=== PATIENT | female | born 1985 | race African-American/Black ===

== ENCOUNTER 2016-05-05 10:39 | Emergency (ER) | payer SELFPAY ==
[~2016-05-05] VITALS: Ht 175.3 cm; Wt 110.0 kg
[~2016-05-05 10:39] MED LIST: BENT20TA PO; NOVO7030P2 SQ; PROC10TA PO; VIST25CA PO; ZANT150T2 PO
[2016-05-05 10:40] VITALS: BP 143/87; PULSE 93; RESP 12; TEMP 98.1; O2SAT 98
--- NOTE | 2016-05-05 12:07 | PD ---
HPI Chief Complaint: Back/ Neck Pain or Injury Time Seen by Provider: 11:30 Travel History International Travel<30 days: No Contact w/Intl Traveler<30days: No Traveled to known affect area: No History of Present Illness HPI 31-year-old female presents to the emergency room for evaluation of left lower back pain without radiation for the past 3 days. Patient states she stands a lot at her job and thinks she may have twisted her back. She reports history of bilateral sciatica and states this pain isn't as severe as that pain but it is persistent. She took 1600 mg ibuprofen without relief in symptoms. Denies fever, weight loss, chills, nausea, vomiting, or IV drug use. There was no specific trauma or injury. Patient is requesting a note to return to work. PFSH Past Medical History Anemia: Yes (IRON DEFICIENT) Asthma: Yes (hx when a child) Autoimmune Disease: No Anxiety: No Depression: No Cardiovascular Problems: Yes (HTN) Diabetes: Yes Diminished Hearing: No Gastrointestinal Disorders: No Genitourinary: No Headaches: Yes Hypertension: Yes Musculoskeletal: No Neurologic: Yes Psychiatric: No Reproductive: No Respiratory: Yes Migraines: Yes Sickle Cell Disease: No ?: Not : 0 Para: 0 Miscarriage: 0 : 0 Past Surgical History Other Surgery: No Social History Alcohol Use: Yes (SOCIALLY) Tobacco Use: Yes (/2 PPD) Substance Use: No Allergies-Medications (Allergen,Severity, Reaction): Coded Allergies: Amoxicillin (Verified Allergy, Severe, Swelling, 05/05/16) Penicillin (Verified Allergy, Severe, SWELLING, 05/05/16) Percocet (Verified Allergy, Severe, ITCHY, 05/05/16) Tramadol (Verified Allergy, Severe, Itching, 05/05/16) Zithromax (Verified Allergy, Intermediate, THROAT SWELLING, 05/05/16) *MDRO Multi-Drug Resistant Organism (Verified Allergy, Unknown, 05/05/16) MRSA 2014 Zofran (Verified Adverse Reaction, Severe, ANXIETY, 05/05/16) Uncoded Allergies: Z-ATUL (Allergy, Severe, Anaphylaxis, 08/22/15) Reported Meds & Prescriptions Reported Meds & Active Scripts Active Prochlorperazine Maleate 10 Mg Tab 10 Mg PO Q6H PRN Zantac (Ranitidine HCl) 150 Mg Tab 150 Mg PO BID PRN Bentyl (Dicyclomine HCl) 20 Mg Tab 20 Mg PO TID PRN Reported Novolin 70-30 Inj (Insulin Human Isoph/Insulin Regular) 1,000 Unit/10 Ml Vial 15 Units SQ HS Novolin 70-30 Inj (Insulin Human Isoph/Insulin Regular) 1,000 Unit/10 Ml Vial 25 Units SQ DAILY Vistaril (Hydroxyzine Pamoate) 25 Mg Cap 10 Mg PO DAILY Review of Systems Except as stated in HPI: all other systems reviewed are Neg Physical Exam Narrative GENERAL: Well-nourished, morbidly obese female in no acute distress. Afebrile. Ambulatory. SKIN: Warm and dry. HEAD: Normocephalic. EYES: No scleral icterus. No injection or drainage. NECK: Supple, trachea midline. No JVD or lymphadenopathy. CARDIOVASCULAR: Regular rate and rhythm without murmurs, gallops, or rubs. RESPIRATORY: Breath sounds equal bilaterally. No accessory muscle use. BACK: No CVA tenderness. No rash. No point tenderness on palpation of the spine. Mild tenderness to palpation of the left paraspinous musculature of the lumbar spine. Data Data Last Documented VS Vital Signs Date Time Temp Pulse Resp B/P Pulse Ox O2 Delivery O2 Flow Rate FiO2 05/05/16 10:40 98.1 93 12 143/87 98 Room Air MDM Medical Decision Making Medical Screen Exam Complete: Yes Emergency Medical Condition: No Medical Record Reviewed: Yes Differential Diagnosis Lumbar strain Narrative Course 31-year-old female with history of sciatica presents to the emergency room for evaluation of low back strain for the past 3 days. States this pain is not as bad as her typical sciatica. Physical exam is unremarkable. Patient is ambulatory. She was instructed to no longer take 1600 mg ibuprofen, that the max dose is 800 mg every 8 hours. She is requesting a work note. No red flag symptoms. No indication for x-ray imaging. There are no urgent or emergent medical conditions at this time. A medical screening exam was performed: At the time of evaluation the presenting medical condition was determined not to be of an emergent nature. The patient was given the option of receiving additional care, such as muscle relaxer and work note, but declined. Patient was given options for additional community resources from which to obtain care. The Patient Has Been advised to seek medical attention for their presenting complaint. The patient has been advised to return to the ER at any time if an emergent condition develops. Diagnosis Primary Impression: Encounter for medical screening examination Disposition: 01 DISCHARGE HOME Condition: Stable Geovanna Schwartz May 05, 2016 12:07
== END 2016-05-05 11:57 | disposition left against medical advice (07) ==
LOC: NEPB 10:39
DX: M54.5 Low back pain (principal); I10 Essential (primary) hypertension; F17.210 Nicotine dependence, cigarettes, uncomplicated
CPT/HCPCS: 99281

== ENCOUNTER 2016-07-12 20:12 | Emergency (ER) | payer SELFPAY ==
[~2016-07-12] VITALS: Ht 175.3 cm; Wt 105.0 kg
[2016-07-12 20:14] VITALS: BP 154/89; PULSE 81; RESP 16; TEMP 97.9; O2SAT 99
[2016-07-12] MEDS ORDERED: CIPR-9 PO (23:13)
--- NOTE | 2016-07-12 23:13 | PD ---
HPI Chief Complaint: Headache Time Seen by Provider: 22:59 Travel History International Travel<30 days: No Contact w/Intl Traveler<30days: No Traveled to known affect area: No History of Present Illness HPI 31-year-old female complains of frontal headache and facial pressure nasal congestion postnasal drip and low abdominal pain. Patient states that headache and facial pressure and congestion started about 3 days ago. Patient denies any fever chills. Patient states that headache is mild aching headache frontal head. Patient denies any neck pain. Patient denies any nausea vomiting. Patient denies any coughing. Patient denies any chest pain or shortness of breath. Patient states that she had intermittent mild cramping pain and lower abdomen pelvic area. Patient states that she has dysuria and frequency for the past several days. Patient denies any back pain. Patient denies any vaginal discharge or bleeding. PFSH Past Medical History Anemia: Yes (IRON DEFICIENT) Asthma: Yes (hx when a child) Autoimmune Disease: No Anxiety: No Depression: No Cardiovascular Problems: Yes (HTN) Diabetes: Yes Patient Takes Glucophage: No Diminished Hearing: No Gastrointestinal Disorders: No Genitourinary: No Headaches: Yes Hypertension: Yes Musculoskeletal: No Neurologic: Yes Psychiatric: No Reproductive: No Respiratory: Yes Migraines: Yes Sickle Cell Disease: No ?: Unknown : 0 Para: 0 Miscarriage: 0 : 0 Past Surgical History Surgical History: No Previous Surgery Other Surgery: No Social History Alcohol Use: Yes (SOCIALLY) Tobacco Use: Yes (1/2 PPD) Substance Use: No Allergies-Medications (Allergen,Severity, Reaction): Coded Allergies: Amoxicillin (Verified Allergy, Severe, Swelling, 07/12/16) Penicillin (Verified Allergy, Severe, SWELLING, 07/12/16) Percocet (Verified Allergy, Severe, ITCHY, 07/12/16) Tramadol (Verified Allergy, Severe, Itching, 07/12/16) Zithromax (Verified Allergy, Intermediate, THROAT SWELLING, 07/12/16) *MDRO Multi-Drug Resistant Organism (Verified Allergy, Unknown, 07/12/16) MRSA 2014 Zofran (Verified Adverse Reaction, Severe, ANXIETY, 07/12/16) Uncoded Allergies: Z-ATUL (Allergy, Severe, Anaphylaxis, 08/22/15) Reported Meds & Prescriptions Reported Meds & Active Scripts Active Cipro (Ciprofloxacin HCl) 500 Mg Tab 500 Mg PO BID Prochlorperazine Maleate 10 Mg Tab 10 Mg PO Q6H PRN Zantac (Ranitidine HCl) 150 Mg Tab 150 Mg PO BID PRN Bentyl (Dicyclomine HCl) 20 Mg Tab 20 Mg PO TID PRN Reported Novolin 70-30 Inj (Insulin Human Isoph/Insulin Regular) 1,000 Unit/10 Ml Vial 15 Units SQ HS Novolin 70-30 Inj (Insulin Human Isoph/Insulin Regular) 1,000 Unit/10 Ml Vial 25 Units SQ DAILY Vistaril (Hydroxyzine Pamoate) 25 Mg Cap 10 Mg PO DAILY Review of Systems General / Constitutional: No: Fever Eyes: No: Visual changes HENT: Positive: Headaches Cardiovascular: No: Chest Pain or Discomfort Respiratory: No: Shortness of Breath Gastrointestinal: Positive: Abdominal Pain Genitourinary: Positive: Frequency, Dysuria Musculoskeletal: No: Pain Skin: No Rash Neurologic: No: Weakness Psychiatric: No: Depression Endocrine: No: Polydipsia Hematologic/Lymphatic: No: Easy Bruising Physical Exam Narrative GENERAL: Well-nourished, well-developed patient. SKIN: Warm and dry. HEAD: Normocephalic. Patient has tenderness on palpation of frontal and maxillary sinus area. Nasal mucosa erythematous and boggy. EYES: No scleral icterus. No injection or drainage. Pupils 3 mm equal reactive. NECK: Supple, trachea midline. No JVD or lymphadenopathy. No meningismus CARDIOVASCULAR: Regular rate and rhythm without murmurs, gallops, or rubs. RESPIRATORY: Breath sounds equal bilaterally. No accessory muscle use. GASTROINTESTINAL: Abdomen soft, non-tender, nondistended. MUSCULOSKELETAL: No cyanosis, or edema. BACK: Nontender without obvious deformity. No CVA tenderness. Neurologic exam normal. Data Data Last Documented VS Vital Signs Date Time Temp Pulse Resp B/P Pulse Ox O2 Delivery O2 Flow Rate FiO2 07/12/16 22:40 18 Room Air 07/12/16 20:14 97.9 81 154/89 99 Orders Urinalysis - C+S If Indicated (07/12/16 23:07) Ed Urine Pregnancytest Poc (07/12/16 23:08) MDM Medical Decision Making Medical Screen Exam Complete: Yes Emergency Medical Condition: Yes Interpretation(s) Urine test negative. Differential Diagnosis Differential diagnosis including tension headache, cluster headache, migraine headache, sinusitis, UTI, pyelonephritis, colitis, cervicitis, PID, . Narrative Course 31-year-old female with congestion, headache, low abdominal pain dysuria and frequency. Diagnosis Primary Impression: Sinusitis Qualified Code: J01.10 - Acute non-recurrent frontal sinusitis Additional Impression: UTI (urinary tract infection) Qualified Code: N30.00 - Acute cystitis without hematuria Patient Instructions: General Instructions Additional Instructions: Cipro as directed. Follow-up with personal physician. Return if worse. Tylenol for headache. 23:34 PM. I was informed by my nurse that patient left AMA without prescription. Med/Other Pt SpecificInfo: Prescription(s) given Scripts Ciprofloxacin (Cipro)500 Mg [id number] Mg PO BID #20 TAB Prov:Sonu Biswas MD 07/12/16 Disposition: 07 AGAINST MEDICAL ADVICE Condition: Stable Sonu Biswas MD Jul 12, 2016 23:13
== END 2016-07-12 23:45 | disposition left against medical advice (07) ==
LOC: NEPA 20:12
DX: J32.9 Chronic sinusitis, unspecified (principal); N39.0 Urinary tract infection, site not specified; R10.9 Unspecified abdominal pain; D64.89 Other specified anemias; I10 Essential (primary) hypertension; E11.9 Type 2 diabetes mellitus without complications; F17.210 Nicotine dependence, cigarettes, uncomplicated
CPT/HCPCS: 99284

== ENCOUNTER 2016-09-06 12:49 | Emergency (ER) | payer SELFPAY ==
[~2016-09-06] VITALS: Ht 175.3 cm; Wt 105.0 kg
[~2016-09-06 12:49] MED LIST changes: +CIPR-9 PO
[2016-09-06 12:51] VITALS: BP 136/72; PULSE 104; RESP 24; TEMP 97.8; O2SAT 98
[2016-09-06] MEDS ORDERED: LISI-519 PO (13:14)
[2016-09-06] MEDS ORDERED: METO-309 PO (13:14)
[2016-09-06] MEDS ORDERED: SODIUM CHLOR 0.9% 1000 ML INJ 1,000 ML IV SCH (13:16)
--- NOTE | 2016-09-06 13:20 | PD ---
HPI Chief Complaint: Abdominal Pain Time Seen by Provider: 13:16 Travel History International Travel<30 days: No Contact w/Intl Traveler<30days: No Traveled to known affect area: No History of Present Illness HPI 31-year-old female with history of hypertension, diabetes, presents to the ER today for sudden onset of lower abdominal and epigastric abdominal pains with nausea and vomiting. She denies any diarrhea, fevers, or any other symptoms. Pain is currently a constant 8 out of 10. She does not know of any exacerbating or alleviating factors. She does not know any sick contacts. Modifying Factors: None Associated Signs & Symptoms: Abdominal pains, nausea and vomiting Risk Factors: None PFSH Past Medical History Anemia: Yes (IRON DEFICIENT) Asthma: Yes (hx when a child) Autoimmune Disease: No Anxiety: No Depression: No Cardiovascular Problems: Yes (HTN) Diabetes: Yes Patient Takes Glucophage: No Diminished Hearing: No Gastrointestinal Disorders: No Genitourinary: No Headaches: Yes Hypertension: Yes Musculoskeletal: No Neurologic: Yes Psychiatric: No Reproductive: No Respiratory: Yes Migraines: Yes Sickle Cell Disease: No ?: Not LMP: 08/29/2016 : 0 Para: 0 Miscarriage: 0 : 0 Past Surgical History Other Surgery: No Social History Alcohol Use: No Tobacco Use: Yes Substance Use: No Allergies-Medications (Allergen,Severity, Reaction): Coded Allergies: Amoxicillin (Verified Allergy, Severe, Swelling, 09/06/16) Penicillin (Verified Allergy, Severe, SWELLING, 09/06/16) Percocet (Verified Allergy, Severe, ITCHY, 09/06/16) Tramadol (Verified Allergy, Severe, Itching, 09/06/16) Zithromax (Verified Allergy, Intermediate, THROAT SWELLING, 09/06/16) *MDRO Multi-Drug Resistant Organism (Verified Allergy, Unknown, 09/06/16) MRSA 2014 Zofran (Verified Adverse Reaction, Severe, ANXIETY, 09/06/16) Uncoded Allergies: Z-ATUL (Allergy, Severe, Anaphylaxis, 08/22/15) Reported Meds & Prescriptions Reported Meds & Active Scripts Active Reported Lopressor (Metoprolol Tartrate) 50 Mg Tab 50 Mg PO DAILY Lisinopril 5 Mg Tab 5 Mg PO DAILY Novolin 70-30 Inj (Insulin Human Isoph/Insulin Regular) 1,000 Unit/10 Ml Vial 25 Units SQ DAILY Review of Systems Except as stated in HPI: all other systems reviewed are Neg Physical Exam Narrative GENERAL: Well-developed obese young -Citizen Of [place] female patient who is currently in moderate distress. Awake and oriented 3. SKIN: Focused skin assessment warm/dry. HEAD: Atraumatic. Normocephalic. EYES: Pupils equal and round. No scleral icterus. No injection or drainage. ENT: No nasal bleeding or discharge. Mucous membranes pink and moist. NECK: Trachea midline. No JVD. CARDIOVASCULAR: Regular rate and rhythm. No murmur appreciated. RESPIRATORY: No accessory muscle use. Clear to auscultation. Breath sounds equal bilaterally. GASTROINTESTINAL: Abdomen soft, mild epigastric tenderness without guarding or rebound, nondistended. Hepatic and splenic margins not palpable. MUSCULOSKELETAL: No obvious deformities. No clubbing. No cyanosis. No edema. NEUROLOGICAL: Awake and alert. No obvious cranial nerve deficits. Motor grossly within normal limits. Normal speech. PSYCHIATRIC: Appropriate mood and affect; insight and judgment normal. Data Data Last Documented VS Vital Signs Date Time Temp Pulse Resp B/P Pulse Ox O2 Delivery O2 Flow Rate FiO2 09/06/16 14:30 98 Room Air 09/06/16 12:51 97.8 104 24 136/72 Orders Complete Blood Count With Diff (09/06/16 13:16) Comprehensive Metabolic Panel (09/06/16 13:16) Lipase (09/06/16 13:16) Urinalysis - C+S If Indicated (09/06/16 13:16) Iv Access Insert/Monitor (09/06/16 13:16) Ecg Monitoring (09/06/16 13:16) Oximetry (09/06/16 13:16) Sodium Chlor 0.9% 1000 Ml Inj (Ns 1000 M (09/06/16 13:16) Sodium Chloride 0.9% Flush (Ns Flush) (09/06/16 13:30) Famotidine Inj (Pepcid Inj) (09/06/16 13:30) Ed Urine Pregnancytest Poc (09/06/16 13:16) Metoclopramide Inj (Reglan Inj) (09/06/16 13:30) Labs Laboratory Tests Test 09/06/16 13:48 White Blood Count 7.4 TH/MM3 Red Blood Count 5.07 MIL/MM3 Hemoglobin 13.9 GM/DL Hematocrit 42.2 % Mean Corpuscular Volume 83.2 FL Mean Corpuscular Hemoglobin 27.5 PG Mean Corpuscular Hemoglobin 33.1 % Concent Red Cell Distribution Width 13.1 % Platelet Count 328 TH/MM3 Mean Platelet Volume 8.3 FL Neutrophils (%) (Auto) 58.8 % Lymphocytes (%) (Auto) 36.5 % Monocytes (%) (Auto) 3.8 % Eosinophils (%) (Auto) 0.5 % Basophils (%) (Auto) 0.4 % Neutrophils # (Auto) 4.3 TH/MM3 Lymphocytes # (Auto) 2.7 TH/MM3 Monocytes # (Auto) 0.3 TH/MM3 Eosinophils # (Auto) 0.0 TH/MM3 Basophils # (Auto) 0.0 TH/MM3 CBC Comment DIFF FINAL Differential Comment Urine Color YELLOW Urine Turbidity HAZY Urine pH 5.5 Urine Specific [place] 1.045 Urine Protein TRACE mg/dL Urine Glucose (UA) 1000 mg/dL Urine Ketones NEG mg/dL Urine Occult Blood NEG Urine Nitrite NEG Urine Bilirubin NEG Urine Urobilinogen 2.0 MG/DL Urine Leukocyte Esterase NEG Urine RBC 1 /hpf Urine WBC 1 /hpf Urine Squamous Epithelial 15 /hpf Cells Urine Hyaline Casts 4 /lpf Urine Mucus FEW /lpf Urine Yeast (Budding) RARE Microscopic Urinalysis Comment CULT NOT INDICATED Sodium Level 133 MEQ/L Potassium Level 4.6 MEQ/L Chloride Level 100 MEQ/L Carbon Dioxide Level 24.9 MEQ/L Anion Gap 8 MEQ/L Blood Urea Nitrogen 13 MG/DL Creatinine 0.98 MG/DL Estimat Glomerular Filtration 81 ML/MIN Rate Random Glucose 288 MG/DL Calcium Level 9.6 MG/DL Total Bilirubin 0.4 MG/DL Aspartate Amino Transf 23 U/L (AST/SGOT) Alanine Aminotransferase 21 U/L (ALT/SGPT) Alkaline Phosphatase 75 U/L Total Protein 8.9 GM/DL Albumin 3.8 GM/DL Lipase 142 U/L MDM Medical Decision Making Medical Screen Exam Complete: Yes Emergency Medical Condition: Yes Medical Record Reviewed: Yes Interpretation(s) Laboratory Tests Test 09/06/16 13:48 Urine Turbidity HAZY (CLEAR) Urine Specific [place] 1.045 (1.002-1.035) Urine Glucose (UA) 1000 mg/dL (NEG) Urine Mucus FEW /lpf (OCC) Urine Yeast (Budding) RARE (NONE) Sodium Level 133 MEQ/L (136-145) Estimat Glomerular Filtration 81 ML/MIN (>89) Rate Random Glucose 288 MG/DL (74-106) Total Protein 8.9 GM/DL (6.4-8.2) Differential Diagnosis Abdominal pains, nausea and vomitinggastritis versus pancreatitis versus gastroenteritis versus dehydration versus metabolic issues Narrative Course Lab work did not indicate significant metabolic issues. Her abdomen is fairly benign and I do not suspect an acute intra-abdominal process.. IV fluids, Reglan, was given in the ER and on reevaluation at 3 PM, the patient is feeling improved. X-ray have been ordered to rule out acute obstruction the patient had declined stating that she is articulate feeling better, does not think that she is obstructed. She has stopped vomiting at this point I think it is fine. She should return for any worsening in symptoms. The plan has been discussed with her and she states understanding. Diagnosis Primary Impression: Gastroenteritis Med/Other Pt SpecificInfo: Prescription(s) given Scripts Metoclopramide (Reglan)10 Mg Tab10 Mg PO QID PRN (NAUSEA OR VOMITING) #20 TAB Ref 0 Prov:Papi Morales MD 09/06/16 Disposition: 01 DISCHARGE HOME Condition: Stable Papi Morales MD September 06, 2016 13:20
[2016-09-06] MEDS ORDERED: METOCLOPRAMIDE HCL 10 MG/2 ML VIAL IV PUSH ONE (13:30)
[2016-09-06] MEDS ORDERED: FAMOTIDINE 20 MG/2 ML VIAL IV PUSH ONE (13:30)
[2016-09-06] MEDS ORDERED: SODIUM CHLORIDE 0.9% FLUSH 10 ML FLUSH IV FLUSH PRN (13:30)
[2016-09-06 13:58] LABS: AUTOMATED NEUTROPHIL # 4.3 TH/MM3 (1.8-7.7); BASOPHIL % 0.4 % (0.0-2.0); EOSINOPHIL % 0.5 % (0.0-4.0); HEMATOCRIT 42.2 % (35.0-46.0); HEMO FLAGS DIFF FINAL; LYMPH % 36.5 % (9.0-44.0); LYMPHOCYTE # 2.7 TH/MM3 (1.0-4.8); MEAN CELL VOLUME 83.2 FL (80.0-100.0); MEAN CORPUSCULAR HEMOGLOBIN 27.5 PG (27.0-34.0); MEAN CORPUSCULAR HGB CONC 33.1 % (32.0-36.0); MONO % 3.8 % (0.0-8.0); NEUT % 58.8 % (16.0-70.0); PLATELET COUNT 328 TH/MM3 (150-450); RED BLOOD COUNT 5.07 MIL/MM3 (4.00-5.30); RED CELL DISTRIBUTION WIDTH 13.1 % (11.6-17.2); WHITE BLOOD COUNT 7.4 TH/MM3 (4.0-11.0)
[2016-09-06 14:19] LABS: ANION GAP 8 MEQ/L (5-15); AST (GOT) 23 U/L (15-37); BICARBONATE 24.9 MEQ/L (21.0-32.0); BLOOD UREA NITROGEN 13 MG/DL (7-18); CHLORIDE 100 MEQ/L (98-107); GLOMERULAR FILTRATION RATE 81 ML/MIN (>89); SODIUM (NA) 133 MEQ/L (136-145)
[2016-09-06 14:20] LABS: ALKALINE PHOSPHATASE 75 U/L (45-117); ALT (GPT) 21 U/L (10-53); TOTAL BILIRUBIN ADULT 0.4 MG/DL (0.2-1.0)
[2016-09-06 14:21] LABS: BLOOD, URINE NEG (NEG); COMMENT (UR) CULT NOT INDICATED; CULTURE IF INDICATED CULT NOT INDICATED; GLUCOSE,URINE 1000 mg/dL (NEG); HYALINE CAST, URINE 4 /lpf (RARE); KETONE, URINE NEG (NEG); MUCUS URINE FEW /lpf (OCC); NITRITE,URINE NEG (NEG); PH, URINE 5.5 (5.0-8.5); SQUAMOUS EPITHELIAL CELL URINE 15 /hpf (0-5); URINE COLOR YELLOW (YELLW/STRAW)
[2016-09-06 14:22] LABS: POTASSIUM 4.6 MEQ/L (3.5-5.1)
[2016-09-06 14:30] VITALS: O2SAT 98
[2016-09-06] MEDS ORDERED: REGL10TA5 PO (15:08)
[2016-09-06 15:09] VITALS: BP 181/88; PULSE 95; RESP 16; O2SAT 98
== END 2016-09-06 15:38 | disposition home or self-care (01) ==
LOC: NEPD 12:49
DX: K52.9 Noninfective gastroenteritis and colitis, unspecified (principal); I10 Essential (primary) hypertension; E78.00 Pure hypercholesterolemia, unspecified; E11.9 Type 2 diabetes mellitus without complications; D50.9 Iron deficiency anemia, unspecified; Z72.0 Tobacco use
CPT/HCPCS: 80053; 81001; 83690; 84703; 85025; 96374; 96375; 99283; J2765; J7030

== ENCOUNTER 2016-09-30 11:34 | Emergency (ER) | payer SELFPAY ==
[~2016-09-30] VITALS: Ht 175.3 cm; Wt 110.0 kg
[~2016-09-30 11:34] MED LIST changes: -BENT20TA PO; -CIPR-9 PO; +LISI-519 PO; +METO-309 PO; -PROC10TA PO; +REGL10TA5 PO; -VIST25CA PO; -ZANT150T2 PO
[2016-09-30 11:35] VITALS: BP 145/92; PULSE 78; RESP 16; TEMP 98.2; O2SAT 100
--- NOTE | 2016-09-30 11:48 | PD ---
Physical Exam Date Seen by Provider: September 30, 2016 Time Seen by Provider: 11:39 Narrative 31 yo female here for evaluation of cold like symptoms. Having bad cough, congestion, stuffy nose and watery eyes for about 5 days. Nothing makes it better. She states having some abdominal pains come and go. She believes she her muscles are sore from coughing. No sick contacts. no recent travel. Cough is productive. No asthma. Vitals sign stable. Patient awaiting bed placement. Data Data Last Documented VS Vital Signs Date Time Temp Pulse Resp B/P Pulse Ox O2 Delivery O2 Flow Rate FiO2 09/30/16 11:35 98.2 78 16 145/92 100 MDM Medical Record Reviewed: Yes Supervised Visit with LLUVIA: No Arias Chapa September 30, 2016 11:48
--- NOTE | 2016-09-30 12:30 | PD ---
HPI Chief Complaint: Cold / Flu Symptoms Time Seen by Provider: 12:15 Travel History International Travel<30 days: No Contact w/Intl Traveler<30days: No Traveled to known affect area: No History of Present Illness HPI Patient is a 31-year-old female presenting to the emergency department for evaluation of nasal congestion, cough, voice changes. She denies any recent fevers. Patient states her symptoms started , she states the cough causes her to have rib pain. She denies any nausea, vomiting, abdominal pain, headache, chest pain. PFSH Past Medical History Anemia: Yes (IRON DEFICIENT) Asthma: Yes (hx when a child) Autoimmune Disease: No Anxiety: No Depression: No Cardiovascular Problems: Yes (HTN) Diabetes: Yes Diminished Hearing: No Gastrointestinal Disorders: No Genitourinary: No Headaches: Yes Hypertension: Yes Musculoskeletal: No Neurologic: Yes Psychiatric: No Reproductive: No Respiratory: Yes Migraines: Yes Sickle Cell Disease: No ?: Not LMP: 08/29/16 : 0 Para: 0 Miscarriage: 0 : 0 Past Surgical History Other Surgery: No Social History Alcohol Use: No Tobacco Use: Yes Substance Use: No Allergies-Medications (Allergen,Severity, Reaction): Coded Allergies: Amoxicillin (Verified Allergy, Severe, Swelling, 09/06/16) Penicillin (Verified Allergy, Severe, SWELLING, 09/06/16) Percocet (Verified Allergy, Severe, ITCHY, 09/06/16) Tramadol (Verified Allergy, Severe, Itching, 09/06/16) Zithromax (Verified Allergy, Intermediate, THROAT SWELLING, 09/06/16) *MDRO Multi-Drug Resistant Organism (Verified Allergy, Unknown, 09/06/16) MRSA 2014 Zofran (Verified Adverse Reaction, Severe, ANXIETY, 09/06/16) Uncoded Allergies: Z-ATUL (Allergy, Severe, Anaphylaxis, 08/22/15) Reported Meds & Prescriptions Reported Meds & Active Scripts Active Reglan (Metoclopramide HCl) 10 Mg Tab 10 Mg PO QID PRN Reported Lopressor (Metoprolol Tartrate) 50 Mg Tab 50 Mg PO DAILY Lisinopril 5 Mg Tab 5 Mg PO DAILY Novolin 70-30 Inj (Insulin Human Isoph/Insulin Regular) 1,000 Unit/10 Ml Vial 25 Units SQ DAILY Review of Systems Except as stated in HPI: all other systems reviewed are Neg General / Constitutional: No: Fever HENT: Positive: Congestion, Other (loss of voice), No: Headaches Cardiovascular: No: Chest Pain or Discomfort Respiratory: Positive: Cough, Pleuritic Pain, No: Shortness of Breath, Wheezing Gastrointestinal: No: Nausea, Vomiting Musculoskeletal: No: Myalgias Neurologic: No: Weakness, Dizziness Physical Exam Narrative GENERAL: Well-nourished, well-developed patient. SKIN: Focused skin assessment warm/dry. HEAD: Normocephalic. ENT: Mucosa pink and moist. No erythema or exudates. No uvular edema. No uvular , palatal, or tonsillar deviation. Airway patent. Nasal turbinates appear normal without nasal blood, purulent drainage or septal hematoma. Cobblestone appearance to posterior pharynx. EYES: No scleral icterus. No injection or drainage. NECK: Supple, trachea midline. No JVD or lymphadenopathy. CARDIOVASCULAR: Regular rate and rhythm without murmurs, gallops, or rubs. RESPIRATORY: Breath sounds equal bilaterally. No accessory muscle use. GASTROINTESTINAL: Abdomen soft, non-tender, nondistended. MUSCULOSKELETAL: No cyanosis, or edema. BACK: Nontender without obvious deformity. No CVA tenderness. Data Data Last Documented VS Vital Signs Date Time Temp Pulse Resp B/P Pulse Ox O2 Delivery O2 Flow Rate FiO2 09/30/16 11:35 98.2 78 16 145/92 100 [facility] Medical Decision Making Medical Screen Exam Complete: Yes Emergency Medical Condition: Yes Interpretation(s) Vital Signs Date Time Temp Pulse Resp B/P Pulse Ox O2 Delivery O2 Flow Rate FiO2 09/30/16 11:35 98.2 78 16 145/92 100 Differential Diagnosis Viral syndrome versus pharyngitis versus postinfectious cough versus bronchitis versus asthma exacerbation versus other Narrative Course Patient's 31-year-old female presenting to emergency for evaluation of cold of flulike symptoms. Symptoms initially started with nasal congestion, progressing to a nonproductive cough and a loss of her voice. Physical exam appears most consistent with a viral syndrome. Patient has had no recent fevers. She does have a history of asthma but does not utilize her inhaler. Patient was encouraged to continue symptomatic management. She will be given a prescription for backup antibiotic at this time. She was encouraged to follow- up with her primary doctor return to emergency department for any new or worsening symptoms. Patient verbalized understanding of instructions. Patient is stable for discharge. Diagnosis Primary Impression: Viral URI with cough Referrals: Primary Care Physician Patient Instructions: General Instructions, Upper Respiratory Infection (ED), Viral Syndrome (DC) Additional Instructions: Follow-up with your primary doctor or at the new [place] [facility] Continue with symptomatic management Return to emergency department for any new or worsening symptoms If you start antibiotic, complete full course of therapy as prescribed Med/Other Pt SpecificInfo: Prescription(s) given Scripts Ibuprofen 800 Mg [id number] Mg PO Q6HR PRN (PAIN) #40 TAB Ref 0 Prov:Tahira Castillo 09/30/16 Benzonatate (Tessalon Perles)100 Mg [id number] Mg PO TID PRN (COUGH) #12 CAP Ref 0 Prov:Tahira Castillo 09/30/16 Doxycycline Hyclate 100 Mg [id number] Mg PO BID #20 CAP Ref 0 Prov:Tahira Castillo 09/30/16 Disposition: 01 DISCHARGE HOME Condition: Stable Tahira Castillo September 30, 2016 12:29
[2016-09-30] MEDS ORDERED: DOXY100C PO (12:37)
[2016-09-30] MEDS ORDERED: BENZ100 PO (12:37)
[2016-09-30] MEDS ORDERED: IBUP800T23 PO (12:37)
== END 2016-09-30 12:49 | disposition home or self-care (01) ==
LOC: NEPK 11:34
DX: J06.9 Acute upper respiratory infection, unspecified (principal); I10 Essential (primary) hypertension; E11.9 Type 2 diabetes mellitus without complications; Z79.4 Long term (current) use of insulin; Z72.0 Tobacco use
CPT/HCPCS: 99284

== ENCOUNTER 2016-11-25 03:42 | Emergency (ER) | payer SELFPAY ==
[~2016-11-25] VITALS: Ht 172.7 cm; Wt 110.0 kg
[~2016-11-25 03:42] MED LIST changes: +BENZ100 PO; +DOXY100C PO; +IBUP800T23 PO
[2016-11-25 03:43] VITALS: BP 170/99; PULSE 74; RESP 18; TEMP 97.7; O2SAT 100
--- NOTE | 2016-11-25 04:09 | PD ---
HPI Chief Complaint: Complaint Time Seen by Provider: 04:07 Travel History International Travel<30 days: No Contact w/Intl Traveler<30days: No Traveled to known affect area: No History of Present Illness HPI Patient comes in complaining of dysuria ongoing for 2 weeks. Patient states she tried taking leftover Cipro from previous UTI with no improvement of symptoms. Patient's last took this yesterday. Patient states pain is getting progressively worse. Patient having suprapubic abdominal pain that radiates to the left. Patient denies any back pain, fevers, change in bowel. Patient states she's been having vaginal discharge and she thinks might be yeast. Patient tried using [id number] Monistat with no improvement of her symptoms. Patient reports painful intercourse. Denies any nausea, vomiting, chest pain, shortness of breath, or fevers. Patient reports she is diabetic, but does not check her blood sugars is uncertain what they run. PFSH Past Medical History Anemia: Yes (IRON DEFICIENT) Asthma: Yes (hx when a child) Autoimmune Disease: No Anxiety: No Depression: No Cardiovascular Problems: Yes (HTN) Diabetes: Yes Patient Takes Glucophage: No Diminished Hearing: No Gastrointestinal Disorders: No Genitourinary: No Headaches: Yes Hypertension: Yes Musculoskeletal: No Neurologic: Yes Psychiatric: No Reproductive: No Respiratory: Yes Migraines: Yes Sickle Cell Disease: No Tetanus Vaccination: < 5 Years ?: Not LMP: LAST WEEK : 0 Para: 0 Miscarriage: 0 : 0 Past Surgical History Surgical History: No Previous Surgery Other Surgery: No Social History Alcohol Use: No Tobacco Use: Yes Substance Use: No Allergies-Medications (Allergen,Severity, Reaction): Coded Allergies: Amoxicillin (Verified Allergy, Severe, Swelling, 11/25/16) Penicillin (Verified Allergy, Severe, SWELLING, 11/25/16) Percocet (Verified Allergy, Severe, ITCHY, 11/25/16) Tramadol (Verified Allergy, Severe, Itching, 11/25/16) Zithromax (Verified Allergy, Intermediate, THROAT SWELLING, 11/25/16) *MDRO Multi-Drug Resistant Organism (Verified Allergy, Unknown, 11/25/16) MRSA 2014 Zofran (Verified Adverse Reaction, Severe, ANXIETY, 11/25/16) Uncoded Allergies: Z-ATUL (Allergy, Severe, Anaphylaxis, 08/22/15) Reported Meds & Prescriptions Reported Meds & Active Scripts Active Bactrim DS (Sulfamethoxazole-Trimethoprim) 800-160 Mg Tab 1 Tab PO BID Reglan (Metoclopramide HCl) 10 Mg Tab 10 Mg PO QID PRN Reported Lisinopril 5 Mg Tab 5 Mg PO DAILY Novolin 70-30 Inj (Insulin Human Isoph/Insulin Regular) 1,000 Unit/10 Ml Vial 25 Units SQ DAILY Review of Systems Except as stated in HPI: all other systems reviewed are Neg Physical Exam Narrative GENERAL: Well-developed, overly nourished, in no acute distress, and non-ill appearing. SKIN: Focused skin assessment warm and dry. HEAD: Atraumatic. Normocephalic. EYES: Pupils equal and round. EOMI. No scleral icterus. No injection or drainage. ENT: No nasal bleeding or discharge. Mucous membranes pink and moist. NECK: Trachea midline. Supple. No nuclear rigidity. CARDIOVASCULAR: Regular rate and rhythm. No murmur appreciated. RESPIRATORY: No accessory muscle use. No respiratory distress. Clear to auscultation. Breath sounds equal bilaterally. GASTROINTESTINAL: Abdomen soft, non-tender, nondistended, and no guarding. Hepatic and splenic margins not palpable. Normal bowel sounds 4. No pulsatile mass. No CVA tenderness. GENITOURINARY: Normal external genitalia without lesions or erythema. Vaginal vault without blood on the milky discharge. Cervical os was closed without drainage. No cervical motion tenderness. Uterus nontender and nonenlarged. Bilateral adnexa nontender without masses. Exam was performed in the presence of senior staff specialized employment Cindy at all times. MUSCULOSKELETAL: No obvious deformities. No clubbing. No cyanosis. No edema. Full range of motion. NEUROLOGICAL: Awake and alert. No obvious cranial nerve deficits. Motor grossly within normal limits. Normal speech. PSYCHIATRIC: Appropriate mood and affect; insight and judgment normal. Data Data Last Documented VS Vital Signs Date Time Temp Pulse Resp B/P Pulse Ox O2 Delivery O2 Flow Rate FiO2 11/25/16 04:47 18 98 Room Air 11/25/16 03:43 97.7 74 170/99 Orders Complete Blood Count With Diff (11/25/16 04:05) Comprehensive Metabolic Panel (11/25/16 04:05) Gc And Chlamydia Pcr (11/25/16 04:05) Wet Prep Profile (11/25/16 04:05) Urinalysis - C+S If Indicated (11/25/16 04:05) Iv Access Insert/Monitor (11/25/16 04:05) Ed Urine Pregnancytest Poc (11/25/16 04:05) Ecg Monitoring (11/25/16 04:13) Oximetry (11/25/16 04:13) Sodium Chloride 0.9% Flush (Ns Flush) (11/25/16 04:15) Insulin Human Regular Inj (Novolin R Inj (11/25/16 04:15) Urine Culture (11/25/16 04:15) Ceftriaxone Inj (Rocephin Inj) (11/25/16 05:00) Labs Laboratory Tests Test 11/25/16 11/25/16 04:15 04:30 White Blood Count 5.8 TH/MM3 Red Blood Count 4.35 MIL/MM3 Hemoglobin 12.3 GM/DL Hematocrit 37.2 % Mean Corpuscular Volume 85.5 FL Mean Corpuscular Hemoglobin 28.3 PG Mean Corpuscular Hemoglobin 33.1 % Concent Red Cell Distribution Width 14.1 % Platelet Count 280 TH/MM3 Mean Platelet Volume 8.4 FL Neutrophils (%) (Auto) 36.3 % Lymphocytes (%) (Auto) 57.2 % Monocytes (%) (Auto) 4.1 % Eosinophils (%) (Auto) 1.6 % Basophils (%) (Auto) 0.8 % Neutrophils # (Auto) 2.1 TH/MM3 Lymphocytes # (Auto) 3.3 TH/MM3 Monocytes # (Auto) 0.2 TH/MM3 Eosinophils # (Auto) 0.1 TH/MM3 Basophils # (Auto) 0.0 TH/MM3 CBC Comment DIFF FINAL Differential Comment Urine Color YELLOW Urine Turbidity CLOUDY Urine pH 6.5 Urine Specific Kirksey 1.030 Urine Protein 30 mg/dL Urine Glucose (UA) 1000 mg/dL Urine Ketones NEG mg/dL Urine Occult Blood MOD Urine Nitrite NEG Urine Bilirubin NEG Urine Urobilinogen LESS THAN 2.0 MG/DL Urine Leukocyte Esterase LARGE Urine RBC 97 /hpf Urine WBC /hpf Urine WBC Clumps FEW Urine Squamous Epithelial 1 /hpf Cells Urine Transitional Epithelial 1 /hpf Cells Urine Mucus FEW /lpf Microscopic Urinalysis Comment CULTURE INDICATED Sodium Level 135 MEQ/L Potassium Level 4.0 MEQ/L Chloride Level 100 MEQ/L Carbon Dioxide Level 25.4 MEQ/L Anion Gap 10 MEQ/L Blood Urea Nitrogen 12 MG/DL Creatinine 1.03 MG/DL Estimat Glomerular Filtration 77 ML/MIN Rate Random Glucose 410 MG/DL Calcium Level 9.0 MG/DL Total Bilirubin 0.1 MG/DL Aspartate Amino Transf 14 U/L (AST/SGOT) Alanine Aminotransferase 18 U/L (ALT/SGPT) Alkaline Phosphatase 64 U/L Total Protein 7.8 GM/DL Albumin 3.2 GM/DL Clue Cells (Wet Prep) NONE SEEN Vaginal Trichomonas (Wet Prep) NONE SEEN Vaginal Yeast (Wet Prep) NONE SEEN MDM Medical Decision Making Medical Screen Exam Complete: Yes Emergency Medical Condition: Yes Differential Diagnosis UTI, PID, STD, pyelonephritis, other Narrative Course The patient presentation with history and evaluation are consistent with UTI. There is no evidence of pyelonephritis. The patient is tolerating fluids, no fever and no back pain. There is no clinical evidence to suggest atypical cervicitis, PID, appendicitis. The patient was discharged on antibiotics and given warnings to return if condition worsens in any way, fever, vomiting and unable to tolerate medications or fluids, back pain or as needed. The patient was instructed to follow up with their physician. The patient agrees with plan of care. Blood sugar at discharge was down to 251 after receiving 6 units of insulin IV. Patient's record was reviewed patient was sure seems to run around 300 on a regular basis. Patient in no obvious distress upon re-evaluation. All pertinent laboratory result(s) discussed with patient with the exception of gonorrhea and Chlamydia that are currently pending. Patient was asked if they wanted to speak to my attending, which the patient did not wish to do at this time. Any questions/ concerns in reference to patient diagnosis/condition discussed and clarified prior to patient's discharge. Reinforced sheer importance of close follow up with patient's primary physician or primary care clinic. Instructed patient to return to ED immediately, if symptoms return/worsen. Pt showed understanding of above instructions. Further instructions and recommendations were detailed in discharge paperwork. Pt ambulated without difficulty out of ED at discharge. Diagnosis Primary Impression: UTI (urinary tract infection) Qualified Code: N39.0 - Urinary tract infection with hematuria, site unspecified Additional Impression: Uncontrolled diabetes mellitus Qualified Code: E10.65 - Uncontrolled type 1 diabetes mellitus without complication Referrals: [facility] Education-Out [facility] Patient Instructions: General Instructions, Managing Diabetes During Sick Days (GEN), Urinary Tract Infection in Women (ED) Additional Instructions: Follow-up with your primary care physician in 3-5 days for reevaluation and to get your blood sugars better controlled. Take all medication as prescribed. Return to the emergency department if symptoms get worse. Med/Other Pt SpecificInfo: Prescription(s) given Scripts Sulfamethoxazole-Trimethoprim (Bactrim DS)800-160 Mg Tab1 Tab PO BID #20 TAB Ref 0 Prov:Abigail Fletcher MD 11/25/16 Disposition: 01 DISCHARGE HOME Condition: Stable Robin Crenshaw Nov 25, 2016 04:09
[2016-11-25] MEDS ORDERED: SODIUM CHLORIDE 0.9% FLUSH 10 ML FLUSH IV FLUSH PRN (04:15)
[2016-11-25] MEDS ORDERED: INSULIN HUMAN REGULAR 1,000 UNITS/10 ML VIAL IV PUSH ONE (04:15)
[2016-11-25 04:39] LABS: AUTOMATED NEUTROPHIL # 2.1 TH/MM3 (1.8-7.7); BASOPHIL % 0.8 % (0.0-2.0); EOSINOPHIL # 0.1 TH/MM3 (0-0.4); EOSINOPHIL % 1.6 % (0.0-4.0); HEMATOCRIT 37.2 % (35.0-46.0); HEMO FLAGS DIFF FINAL; LYMPH % 57.2 % (9.0-44.0); LYMPHOCYTE # 3.3 TH/MM3 (1.0-4.8); MEAN CELL VOLUME 85.5 FL (80.0-100.0); MEAN CORPUSCULAR HEMOGLOBIN 28.3 PG (27.0-34.0); MEAN CORPUSCULAR HGB CONC 33.1 % (32.0-36.0); MONO % 4.1 % (0.0-8.0); NEUT % 36.3 % (16.0-70.0); PLATELET COUNT 280 TH/MM3 (150-450); RED BLOOD COUNT 4.35 MIL/MM3 (4.00-5.30); RED CELL DISTRIBUTION WIDTH 14.1 % (11.6-17.2); WHITE BLOOD COUNT 5.8 TH/MM3 (4.0-11.0)
[2016-11-25 04:47] VITALS: RESP 18; O2SAT 98
[2016-11-25 04:50] LABS: BLOOD, URINE MOD (NEG); COMMENT (UR) CULTURE INDICATED; CULTURE IF INDICATED CULTURE INDICATED; GLUCOSE,URINE 1000 mg/dL (NEG); KETONE, URINE NEG (NEG); MUCUS URINE FEW /lpf (OCC); NITRITE,URINE NEG (NEG); PH, URINE 6.5 (5.0-8.5); SQUAMOUS EPITHELIAL CELL URINE 1 /hpf (0-5); TRANSITIONAL EPI CELLS, URINE 1 /hpf; URINE COLOR YELLOW (YELLW/STRAW)
[2016-11-25 04:57] LABS: ALKALINE PHOSPHATASE 64 U/L (45-117); ALT (GPT) 18 U/L (10-53); ANION GAP 10 MEQ/L (5-15); AST (GOT) 14 U/L (15-37); BICARBONATE 25.4 MEQ/L (21.0-32.0); BLOOD UREA NITROGEN 12 MG/DL (7-18); CHLORIDE 100 MEQ/L (98-107); GLOMERULAR FILTRATION RATE 77 ML/MIN (>89); SODIUM (NA) 135 MEQ/L (136-145); TOTAL BILIRUBIN ADULT 0.1 MG/DL (0.2-1.0)
[2016-11-25] MEDS ORDERED: cefTRIAXone INJ 1,000 MG in SODIUM CHLORIDE 0.9% INJ 25 ML IV ONE (05:00)
[2016-11-25] MEDS ORDERED: BACT800T5 PO (05:21)
[2016-11-25 06:21] LABS: CHLAMYDIA PCR NOT DETECTED (NOT DETECT); NEISSERIA PCR NOT DETECTED (NOT DETECT)
== END 2016-11-25 06:00 | disposition home or self-care (01) ==
LOC: NEPD 03:42
DX: N39.0 Urinary tract infection, site not specified (principal); B96.20 Unspecified Escherichia coli [E. coli] as the cause of diseases classified elsewhere; E11.65 Type 2 diabetes mellitus with hyperglycemia; N89.8 Other specified noninflammatory disorders of vagina; D50.9 Iron deficiency anemia, unspecified; J45.909 Unspecified asthma, uncomplicated; I10 Essential (primary) hypertension; Z72.0 Tobacco use; Z79.4 Long term (current) use of insulin
CPT/HCPCS: 80053; 81001; 84703; 85025; 87077; 87086; 87186; 87210; 87491; 87591; 96374; 96375; 99284; J0696; J1815

== ENCOUNTER 2016-12-16 20:47 | Emergency (ER) | payer SELFPAY ==
[~2016-12-16 20:47] MED LIST changes: +BACT800T5 PO; -BENZ100 PO; -DOXY100C PO; -IBUP800T23 PO; -METO-309 PO
[2016-12-16 20:50] VITALS: BP 139/92; PULSE 82; RESP 16; TEMP 98.1; O2SAT 100
[2016-12-17] MEDS ORDERED: IBUP800T23 PO (12:34)
[2016-12-17] MEDS ORDERED: ROBA500T PO (12:34)
== END 2016-12-16 21:10 | disposition left against medical advice (07) ==
LOC: NED 20:47
DX: M54.9 Dorsalgia, unspecified (principal); Z53.21 Procedure and treatment not carried out due to patient leaving prior to being seen by health care provider
CPT/HCPCS: 99281

== ENCOUNTER 2016-12-17 11:48 | Emergency (ER) | payer SELFPAY ==
[~2016-12-17] VITALS: Ht 175.3 cm; Wt 109.0 kg
[2016-12-17 11:49] VITALS: BP 141/95; PULSE 88; RESP 18; TEMP 98.1; O2SAT 100
--- NOTE | 2016-12-17 12:33 | PD ---
HPI Chief Complaint: Back/ Neck Pain or Injury Time Seen by Provider: 12:33 Travel History International Travel<30 days: No Contact w/Intl Traveler<30days: No Traveled to known affect area: No History of Present Illness HPI 31-year-old female presents to emergency Department with complaint of left lower back pain that radiates down her left leg. The lower back pain started on Thursday after she fell. And then the radiation of pain down her left leg started yesterday. Denies encopresis, incontinence, saddle anesthesias. Denies fever, vomiting. Denies abdominal pain. Denies paresthesias, loss of sensation, decreased range of motion, decreased strength to bilateral lower extremities. Patient is ambulatory. Denies IV drug use or cancer. Has taken 800 mg ibuprofen for symptom management. Symptoms are mild in severity. Has no other medical complaints. Multiple allergies verified on the chart. No other modifying factors or associated signs and symptoms. PFSH Past Medical History Anemia: Yes (IRON DEFICIENT) Asthma: Yes (hx when a child) Autoimmune Disease: No Anxiety: No Depression: No Cardiovascular Problems: Yes (HTN) Diabetes: Yes Diminished Hearing: No Gastrointestinal Disorders: No Genitourinary: No Headaches: Yes Hypertension: Yes Musculoskeletal: No Neurologic: Yes Psychiatric: No Reproductive: No Respiratory: Yes Migraines: Yes Sickle Cell Disease: No : 0 Para: 0 Miscarriage: 0 : 0 Past Surgical History Other Surgery: No Social History Alcohol Use: No Tobacco Use: Yes Substance Use: No Allergies-Medications (Allergen,Severity, Reaction): Coded Allergies: acetaminophen (Unverified Allergy, Severe, ITCHY, 12/17/16) amoxicillin (Unverified Allergy, Severe, Swelling, 12/17/16) oxycodone (Unverified Allergy, Severe, ITCHY, 12/17/16) penicillin G (Unverified Allergy, Severe, SWELLING, 12/17/16) tramadol (Unverified Allergy, Severe, Itching, 12/17/16) azithromycin (Unverified Allergy, Intermediate, THROAT SWELLING, 12/17/16) *MDRO Multi-Drug Resistant Organism (Verified Allergy, Unknown, 11/25/16) MRSA 2014 ondansetron (Unverified Adverse Reaction, Severe, ANXIETY, 12/17/16) Uncoded Allergies: Z-ATUL (Allergy, Severe, Anaphylaxis, 08/22/15) Reported Meds & Prescriptions Reported Meds & Active Scripts Active Ibuprofen 800 Mg Tab 800 Mg PO Q6HR PRN Robaxin (Methocarbamol) 500 Mg Tab 500 Mg PO QID PRN Reported Lisinopril 5 Mg Tab 5 Mg PO DAILY Novolin 70-30 Inj (Insulin Human Isoph/Insulin Regular) 1,000 Unit/10 Ml Vial 25 Units SQ DAILY Review of Systems Except as stated in HPI: all other systems reviewed are Neg Physical Exam Narrative GENERAL: Well-nourished, well-developed female patient, in no acute distress; afebrile, nontoxic-appearing SKIN: Warm and dry. HEAD: Atraumatic. Normocephalic. EYES: Pupils equal and round. No scleral icterus. No injection or drainage. ENT: Mucosa pink and moist. Airway patent. NECK: Trachea midline. CARDIOVASCULAR: Regular rate. RESPIRATORY: No accessory muscle use. GASTROINTESTINAL: Obese. MUSCULOSKELETAL: Bilateral lower extremities supple and non-tense with 2+ pedal pulses and sensory intact; with full range of motion and 5/5 strength. 2 + DTRs bilaterally. Active dorsiflexion and extension of bilateral feet. Ambulatory in room with normal gait. Sitting up in bed at 90. No obvious deformities. No clubbing. No cyanosis. No edema. BACK: No midline point tenderness on palpation of the lumbar spine. Tenderness on palpation of left lumbar iliosacral area. No obvious deformities. NEUROLOGICAL: Awake and alert. Oriented 3. No obvious cranial nerve deficits. Motor grossly within normal limits. Normal speech. Moves all extremities. 5/5 strength to all extremities. Sensory intact. PSYCHIATRIC: Appropriate mood and affect; insight and judgment normal. Data Data Last Documented VS Vital Signs Date Time Temp Pulse Resp B/P Pulse Ox O2 Delivery O2 Flow Rate FiO2 12/17/16 11:49 98.1 88 18 141/95 100 Room Air Orders Ketorolac Inj (Toradol Inj) (12/17/16 12:45) Orphenadrine Inj (Norflex Inj) (12/17/16 12:45) MDM Medical Decision Making Medical Screen Exam Complete: Yes Emergency Medical Condition: Yes Medical Record Reviewed: Yes Differential Diagnosis Low back strain, low back pain, sciatica Narrative Course 31-year-old female physical examination consistent with left-sided low back pain with sciatica. Denies encopresis, incontinence, saddle anesthesias. No midline tenderness on palpation of the lumbar spine. Patient is a motor in the room with normal gait. Denies IV drug use or cancer. Patient is afebrile and nontoxic appearing. Denies fever, vomiting. Toradol and Norflex administered in the ER. Robaxin and ibuprofen prescribed for home. Instructed patient to follow up with primary care provider. Patient verbalizes understanding and agreement with treatment plan. Patient is medically cleared and stable for discharge. Discussed reasons to return to the emergency department. Patient agrees with treatment plan. The patients vital signs are stable and the patient is stable for outpatient follow-up and treatment. Patient discharged home, stable and in no acute distress. Diagnosis Primary Impression: Left-sided low back pain with sciatica Qualified Code: M54.42 - Left-sided low back pain with left-sided sciatica, unspecified chronicity Referrals: Primary Care Physician Patient Instructions: Acute Low Back Pain (ED), General Instructions, Low Back Strain (ED), Sciatica (ED) Departure Forms: Tests/Procedures, Work Release Enter return to work date: Dec 19, 2016 Additional Instructions: Tylenol or ibuprofen as directed and as needed for pain Robaxin as prescribed and as needed for muscle spasms Heating pad and/or ice to affected area to reduce pain Avoid aggravating activities; increase activity as tolerated Follow-up with primary care provider Return to emergency department immediately with worsening of symptoms Med/Other Pt SpecificInfo: Prescription(s) given Scripts Ibuprofen 800 Mg Rth095 Mg PO Q6HR PRN (PAIN) #30 TAB Ref 0 Prov:Hortencia Cruz 12/17/16 Methocarbamol (Robaxin)500 Mg [id number] Mg PO QID PRN (MUSCLE SPASM) #30 TAB Ref 0 Prov:Hortencia Cruz 12/17/16 Disposition: 01 DISCHARGE HOME Condition: Stable Hortencia Cruz Dec 17, 2016 12:33
[2016-12-17] MEDS ORDERED: IBUP800T23 PO (12:34)
[2016-12-17] MEDS ORDERED: ROBA500T PO (12:34)
[2016-12-17] MEDS ORDERED: ORPHENADRINE INJ 60 MG/2 ML AMP IM ONE (12:45)
[2016-12-17] MEDS ORDERED: KETOROLAC TROMETHAMINE 60 MG/2 ML (IM) VIAL IM ONE (12:45)
== END 2016-12-17 12:58 | disposition home or self-care (01) ==
LOC: NEPK 11:48
DX: M54.42 Lumbago with sciatica, left side (principal); E11.9 Type 2 diabetes mellitus without complications; I10 Essential (primary) hypertension; Z72.0 Tobacco use; Z79.4 Long term (current) use of insulin; Z86.2 Personal history of diseases of the blood and blood-forming organs and certain disorders involving the immune mechanism; Z87.09 Personal history of other diseases of the respiratory system; Z86.79 Personal history of other diseases of the circulatory system; Z86.69 Personal history of other diseases of the nervous system and sense organs; W19.XXXA Unspecified fall, initial encounter
CPT/HCPCS: 96372; 99284; J1885; J2360

== ENCOUNTER 2017-05-11 00:49 | Emergency (ER) | payer SELFPAY ==
[~2017-05-11] VITALS: Ht 177.8 cm; Wt 95.0 kg
[~2017-05-11 00:49] MED LIST changes: -BACT800T5 PO; +IBUP1TAB7 PO; -REGL10TA5 PO; +ROBA500T PO
[2017-05-11 00:51] VITALS: BP 168/99; PULSE 99; RESP 16; TEMP 97.8; O2SAT 99
--- NOTE | 2017-05-11 01:44 | PD ---
HPI Chief Complaint: Flank/Kidney Pain Time Seen by Provider: 01:25 Travel History International Travel<30 days: No Contact w/Intl Traveler<30days: No Traveled to known affect area: No History of Present Illness HPI The patient is a 32 year old female who presents to the [facility] emergency department with a history of suprapubic abdominal pain that she reports began 4 weeks ago and has been constant. The patient reports the pain as an aching sensation. Approximate 2 weeks ago she began to have right-sided flank pain. She reports that throughout the months she has had a strong odor to her urine, however she denies dysuria or urinary urgency. She reports that she has chronic urinary frequency related to having diabetes. She reports that she fell unwell earlier today with lightheaded sensation, nausea vomiting 4. She took her blood sugar at 4 PM and it was 301. She reports that she took an extra 15 units of 70/30 insulin at that time. She reports that normally she is on 15 units in the morning, 20 units in the evening. She denies having a primary care physician. She denies having any vaginal discharge or unusual vaginal bleeding. She denies having any recent fevers, cough, congestion, neck pain, chest pain, shortness of breath, diarrhea, or neurologic symptoms. Her last bowel movement was earlier today. She denies having any blood in her stool or black or tarry stools. [facility] Past Medical History Narrative Medical The patient's past medical history is significant for diabetes, diagnosed approximately 11 years ago, history of hypertension, anemia, history of asthma in childhood, history of headaches. Anemia: Yes (IRON DEFICIENT) Asthma: Yes (hx when a child) Autoimmune Disease: No Blood Disorders: Yes (anemia) Anxiety: No Depression: No Cardiovascular Problems: Yes (HTN) Diabetes: Yes Patient Takes Glucophage: No Diminished Hearing: No Gastrointestinal Disorders: No Genitourinary: No Headaches: Yes Hypertension: Yes Musculoskeletal: No Neurologic: Yes Psychiatric: No Reproductive: No Respiratory: Yes Immunizations Current: Yes Migraines: Yes Sickle Cell Disease: No Tetanus Vaccination: < 5 Years Influenza Vaccination: No ?: Not LMP: 04/28/17 : 0 Para: 0 Miscarriage: 0 : 0 Past Surgical History Narrative Surgical The patient's past surgical history is significant for none. Other Surgery: No Social History Alcohol Use: No Tobacco Use: Yes (one half pack per day) Substance Use: No Allergies-Medications (Allergen,Severity, Reaction): Coded Allergies: acetaminophen (Unverified Allergy, Severe, ITCHY, 05/11/17) amoxicillin (Unverified Allergy, Severe, Swelling, 05/11/17) oxycodone (Unverified Allergy, Severe, ITCHY, 05/11/17) penicillin G (Unverified Allergy, Severe, SWELLING, 05/11/17) tramadol (Unverified Allergy, Severe, Itching, 05/11/17) azithromycin (Unverified Allergy, Intermediate, THROAT SWELLING, 05/11/17) *MDRO Multi-Drug Resistant Organism (Verified Allergy, Unknown, 05/11/17) MRSA 2013 ondansetron (Unverified Adverse Reaction, Severe, ANXIETY, 05/11/17) Uncoded Allergies: Z-ATUL (Allergy, Severe, Anaphylaxis, 08/22/15) Reported Meds & Prescriptions Reported Meds & Active Scripts Active Cipro (Ciprofloxacin HCl) 500 Mg Tab 500 Mg PO BID 7 Days Ibuprofen 800 Mg Tab 800 Mg PO Q6HR PRN Robaxin (Methocarbamol) 500 Mg Tab 500 Mg PO QID PRN Reported Lisinopril 5 Mg Tab 5 Mg PO DAILY Novolin 70-30 Inj (Insulin Human Isoph/Insulin Regular) 1,000 Unit/10 Ml Vial 25 Units SQ DAILY Review of Systems Except as stated in HPI: all other systems reviewed are Neg General / Constitutional: No: Fever Eyes: No: Visual changes HENT: No: Headaches Cardiovascular: No: Chest Pain or Discomfort Respiratory: No: Shortness of Breath Gastrointestinal: Positive: Nausea, Vomiting, Abdominal Pain, No: Diarrhea, Constipation, Changes in Bowel Habits, Indigestion, Loss of Appetite Genitourinary: Positive: Frequency, Other (strong odor to her urine), No: Urgency, Dysuria Musculoskeletal: No: Pain Skin: No Rash Neurologic: Positive: Weakness (generalized weakness), No: Focal Abnormalities , Change in Mentation, Slurred Speech, Sensory Disturbance Psychiatric: No: Depression Endocrine: No: Polydipsia Hematologic/Lymphatic: No: Easy Bruising Physical Exam Narrative General: The patient is a well-developed well-nourished female in no acute distress. Head and Neck exam: Head is normocephalic atraumatic. Eyes: EOMI, pupils are equal round and reactive to light. Nose: Midline septum with pink mucous membranes Mouth: Dentition unremarkable. Moist mucus membranes. Posterior oropharynx is not erythematous. No tonsillar hypertrophy. Uvula midline. Airway patent. Neck: No palpable lymphadenopathy. No nuchal rigidity. No thyromegaly. Cardiovascular: Regular rate and rhythm without murmurs, gallops, or rubs. No pulse deficit to the extremities. Lungs: Clear to auscultation bilaterally. No wheezes, rhonchi, or rales. Abdomen: Soft, with tenderness on palpation of the suprapubic area, no other tenderness on palpation of the other quadrants of the abdomen. No tenderness on palpation of McBurney's point. No guarding, rebound, or rigidity. Normal bowel sounds are audible. Extremities: No clubbing, cyanosis, or edema. 2+ pulses in all 4 extremities. Back: No spinous process tenderness to palpation. No costovertebral angle tenderness to palpation. Neurologic Exam: Grossly nonfocal. Skin Exam: No rash noted. Intact skin that is warm and dry. Data Data Last Documented VS Vital Signs Date Time Temp Pulse Resp B/P (MAP) Pulse Ox O2 Delivery O2 Flow Rate FiO2 05/11/17 01:58 99 Room Air 05/11/17 00:51 97.8 99 16 Orders Orders Complete Blood Count With Diff (05/11/17 01:32) Comprehensive Metabolic Panel (05/11/17 01:32) C-Reactive Protein (Crp) (05/11/17 01:32) Lipase (05/11/17 01:32) Urinalysis - C+S If Indicated (05/11/17 01:32) Blood Gas Venous Ph (05/11/17 01:32) Beta Hydroxybutyrate (Acetone) (05/11/17 01:32) Iv Access Insert/Monitor (05/11/17 01:32) Ecg Monitoring (05/11/17 01:32) Oximetry (05/11/17 01:32) Ed Urine Pregnancytest Poc (05/11/17 01:32) Sodium Chlor 0.9% 1000 Ml Inj (Ns 1000 M (05/11/17 01:45) Metoclopramide Inj (Reglan Inj) (05/11/17 01:45) Urine Culture (05/11/17 01:50) Ceftriaxone Inj (Rocephin Inj) (05/11/17 02:30) Labs Laboratory Tests Test 05/11/17 01:50 White Blood Count 8.0 TH/MM3 Red Blood Count 4.26 MIL/MM3 Hemoglobin 11.8 GM/DL Hematocrit 36.2 % Mean Corpuscular Volume 85.1 FL Mean Corpuscular Hemoglobin 27.7 PG Mean Corpuscular Hemoglobin Concent 32.6 % Red Cell Distribution Width 13.5 % Platelet Count 322 TH/MM3 Mean Platelet Volume 7.8 FL Neutrophils (%) (Auto) 51.1 % Lymphocytes (%) (Auto) 42.9 % Monocytes (%) (Auto) 3.9 % Eosinophils (%) (Auto) 1.3 % Basophils (%) (Auto) 0.8 % Neutrophils # (Auto) 4.1 TH/MM3 Lymphocytes # (Auto) 3.4 TH/MM3 Monocytes # (Auto) 0.3 TH/MM3 Eosinophils # (Auto) 0.1 TH/MM3 Basophils # (Auto) 0.1 TH/MM3 CBC Comment DIFF FINAL Differential Comment Urine Color YELLOW Urine Turbidity HAZY Urine pH 5.5 Urine Specific [place] 1.031 Urine Protein TRACE mg/dL Urine Glucose (UA) 1000 mg/dL Urine Ketones NEG mg/dL Urine Occult Blood NEG Urine Nitrite NEG Urine Bilirubin NEG Urine Urobilinogen LESS THAN 2.0 MG/DL Urine Leukocyte Esterase NEG Urine RBC 3 /hpf Urine WBC 3 /hpf Urine Squamous Epithelial Cells 20 /hpf Urine Bacteria MANY /hpf Urine Mucus FEW /lpf Microscopic Urinalysis Comment CULTURE INDICATED Venous Blood pH 7.35 Blood Urea Nitrogen 13 MG/DL Creatinine 0.91 MG/DL Random Glucose 261 MG/DL Total Protein 8.1 GM/DL Albumin 3.5 GM/DL Calcium Level 9.0 MG/DL Alkaline Phosphatase 60 U/L Aspartate Amino Transf (AST/SGOT) 15 U/L Alanine Aminotransferase (ALT/SGPT) 18 U/L Total Bilirubin 0.2 MG/DL Sodium Level 135 MEQ/L Potassium Level 4.2 MEQ/L Chloride Level 101 MEQ/L Carbon Dioxide Level 26.4 MEQ/L Anion Gap 8 MEQ/L Estimat Glomerular Filtration Rate 88 ML/MIN C-Reactive Protein 1.39 MG/DL Lipase 121 U/L B-Hydroxybutyrate 0.07 MMOL/L [facility] Medical Decision Making Medical Screen Exam Complete: Yes Emergency Medical Condition: Yes Medical Record Reviewed: Yes Differential Diagnosis Cystitis, versus pyelonephritis, versus interstitial cystitis Narrative Course During the course of the patients emergency department visit, the patients history, examination, and differential diagnosis were reviewed with the patient. The patient was placed on a child monitor with oximetry and frequent blood pressure monitoring. The patient had IV access obtained and blood work sent for analysis. The patient was initially provided normal saline 1 L IV fluid bolus, Reglan 5 mg IV 1 for nausea, Rocephin 1 g IV after urinary tract infection was noted on urinalysis The patients laboratory studies were reviewed and remarkable for a CBC that is within normal limits, CMP is remarkable for sodium of 135, glucose 261, C- reactive protein is 1.39, lipase 121, urinalysis is remarkable for 1000 glucose , many bacteria, culture indicated, beta hydroxybutyrate is 0.07, VBG shows a pH of 7.35 I reviewed the electronic medical record reveals that the patient last had a urinary tract infection in November that was pansensitive to antibiotic. The culture was positive for Escherichia coli. The patient will be discharged home with a prescription for ciprofloxacin and Phenergan for nausea. The patient is resting comfortably and feels better, is alert and in no distress. The patients results and examination findings were discussed with the patient. The repeat examination is unremarkable and benign. The history, exam, diagnostic testing, and current condition do not suggest any significant pathology to warrant further testing, continued ED treatment, admission, or surgical evaluation at this point. The vital signs have been stable. The patient does not have uncontrollable pain, intractable vomiting, or other significant symptoms. The patient's condition is stable and appropriate for discharge. The patient will pursue further outpatient evaluation with a primary care physician or other designated or consulting physician as indicated in the discharge instructions. The patient expressed understanding and was agreeable with this plan. Diagnosis Primary Impression: UTI (urinary tract infection) Qualified Codes: N39.0 - Urinary tract infection, site not specified Additional Impression: Vomiting Qualified Codes: R11.2 - Nausea with vomiting, unspecified Referrals: [facility] 2 days Patient Instructions: General Instructions, Urinary Tract Infection in Women ( ED) Med/Other Pt SpecificInfo: Prescription(s) given Scripts Promethazine (Phenergan) 25 Mg Tablet 25 MG PO Q8HR Y for NAUSEA OR VOMITING, #6 TAB 0 Refills Prov: Abigail Fletcher MD 05/11/17 Ciprofloxacin (Cipro) 500 Mg Tab 500 MG PO BID for Infection for 7 Days, #14 TAB 0 Refills Prov: Abigail Fletcher MD 05/11/17 Disposition: 01 DISCHARGE HOME Condition: Stable Abigail Fletcher MD May 11, 2017 01:44
[2017-05-11] MEDS ORDERED: SODIUM CHLOR 0.9% 1000 ML INJ 1,000 ML IV ONE (01:45)
[2017-05-11] MEDS ORDERED: METOCLOPRAMIDE HCL 10 MG/2 ML VIAL IV PUSH ONE (01:45)
[2017-05-11 01:58] VITALS: O2SAT 99
[2017-05-11 01:59] LABS: AUTOMATED NEUTROPHIL # 4.1 TH/MM3 (1.8-7.7); BASOPHIL # 0.1 TH/MM3 (0-0.2); BASOPHIL % 0.8 % (0.0-2.0); EOSINOPHIL # 0.1 TH/MM3 (0-0.4); EOSINOPHIL % 1.3 % (0.0-4.0); HEMATOCRIT 36.2 % (35.0-46.0); HEMOGLOBIN 11.8 GM/DL (11.6-15.3); LYMPH % 42.9 % (9.0-44.0); LYMPHOCYTE # 3.4 TH/MM3 (1.0-4.8); MEAN CELL VOLUME 85.1 FL (80.0-100.0); MEAN CORPUSCULAR HEMOGLOBIN 27.7 PG (27.0-34.0); MEAN CORPUSCULAR HGB CONC 32.6 % (32.0-36.0); MEAN PLATELET VOLUME 7.8 FL (7.0-11.0); MONO % 3.9 % (0.0-8.0); MONOCYTE # 0.3 TH/MM3 (0-0.9); NEUT % 51.1 % (16.0-70.0); PLATELET COUNT 322 TH/MM3 (150-450); RED BLOOD COUNT 4.26 MIL/MM3 (4.00-5.30); RED CELL DISTRIBUTION WIDTH 13.5 % (11.6-17.2)
[2017-05-11 02:02] LABS: BACTERIA, URINE MANY /hpf; BILIRUBIN, URINE NEG (NEG); BLOOD, URINE NEG (NEG); GLUCOSE,URINE 1000 mg/dL (NEG); KETONE, URINE NEG (NEG); MUCUS URINE FEW /lpf (OCC); NITRITE,URINE NEG (NEG); PH, URINE 5.5 (5.0-8.5); SQUAMOUS EPITHELIAL CELL URINE 20 /hpf (0-5); URINE COLOR YELLOW (YELLW/STRAW); URINE LEUKOCYTE ESTERASE NEG (NEG)
[2017-05-11 02:24] LABS: ALKALINE PHOSPHATASE 60 U/L (45-117); TOTAL BILIRUBIN ADULT 0.2 MG/DL (0.2-1.0); TOTAL PROTEIN 8.1 GM/DL (6.4-8.2)
[2017-05-11 02:26] LABS: ALBUMIN 3.5 GM/DL (3.4-5.0); ALT (GPT) 18 U/L (10-53); AST (GOT) 15 U/L (15-37); BICARBONATE 26.4 MEQ/L (21.0-32.0); BLOOD UREA NITROGEN 13 MG/DL (7-18); C-REACTIVE PROTEIN 1.39 MG/DL (0.00-0.30); CHLORIDE 101 MEQ/L (98-107); CREATININE 0.91 MG/DL (0.50-1.00); GLOMERULAR FILTRATION RATE 88 ML/MIN (>89); GLUCOSE,RANDOM 261 MG/DL (74-106); LIPASE 121 U/L (73-393); SODIUM (NA) 135 MEQ/L (136-145)
[2017-05-11] MEDS ORDERED: cefTRIAXone INJ 1,000 MG in SODIUM CHLORIDE 0.9% INJ 100 ML IV ONE (02:30)
[2017-05-11] MEDS ORDERED: CIPR-9 PO (02:50)
[2017-05-11] MEDS ORDERED: PROM25TA10 PO (02:56)
== END 2017-05-11 03:11 | disposition home or self-care (01) ==
LOC: NEPE 00:49
DX: N39.0 Urinary tract infection, site not specified (principal); B96.20 Unspecified Escherichia coli [E. coli] as the cause of diseases classified elsewhere; R42 Dizziness and giddiness; R11.2 Nausea with vomiting, unspecified; D50.9 Iron deficiency anemia, unspecified; J45.909 Unspecified asthma, uncomplicated; I10 Essential (primary) hypertension; E11.9 Type 2 diabetes mellitus without complications; F17.200 Nicotine dependence, unspecified, uncomplicated
CPT/HCPCS: 80053; 81001; 82010; 82800; 83690; 84703; 85025; 86140; 87077; 87086; 87186; 96361; 96365; 96375; 99284; J0696; J2765; J7030

== ENCOUNTER 2017-06-25 15:22 | Emergency (ER) | payer SELFPAY ==
[~2017-06-25] VITALS: Ht 175.3 cm; Wt 110.0 kg
[~2017-06-25 15:22] MED LIST changes: +CIPR-9 PO; +PROM25TA10 PO
[2017-06-25 15:24] VITALS: BP 135/75; PULSE 92; RESP 14; TEMP 98.1; O2SAT 97
== END 2017-06-25 16:00 | disposition left against medical advice (07) ==
LOC: NETRI 15:22
DX: Z03.89 Encounter for observation for other suspected diseases and conditions ruled out (principal)
CPT/HCPCS: 99281